=== PATIENT | male | born 1940 | race Caucasian/White ===

== ENCOUNTER → 2024-02-14 06:29 | Day surgery (SDC) | payer MEDICARE, SELFPAY ==
[2024-02-14 07:17] LABS: Glucose - Point of Care 140 mg/dl (70-99)
== END ==
LOC: GI 06:29
PROVIDERS: ATTENDING PHYSICIAN Internal Medicine Gastroenterology
DX: Z12.11 Encounter for screening for malignant neoplasm of colon (principal); D12.5 Benign neoplasm of sigmoid colon; K64.8 Other hemorrhoids
CPT/HCPCS: 45385; 88305; 82962

== ENCOUNTER → 2024-06-23 15:09 | Outpatient (REF) | payer MEDICARE, SELFPAY | LOC: HWRAD 15:09 | PROVIDERS: ATTENDING PHYSICIAN Internal Medicine Cardiovascular Disease; FAMILY PHYSICIAN Internal Medicine | DX: I10 Essential (primary) hypertension (principal); R06.02 Shortness of breath | CPT/HCPCS: 71046 ==

== ENCOUNTER → 2024-07-05 09:34 | Outpatient (REF) | payer MEDICARE, SELFPAY | LOC: RCS 09:34 | PROVIDERS: ATTENDING PHYSICIAN Internal Medicine Cardiovascular Disease; FAMILY PHYSICIAN Internal Medicine | DX: I10 Essential (primary) hypertension (principal); R06.02 Shortness of breath; R60.0 Localized edema | CPT/HCPCS: 93306; 93356 ==

== ENCOUNTER → 2025-02-17 15:57 | Outpatient (REF) | payer MEDICARE, SELFPAY | LOC: RAD 15:57 | PROVIDERS: ATTENDING PHYSICIAN Nurse Practitioner Family | DX: R10.31 Right lower quadrant pain (principal); M54.41 Lumbago with sciatica, right side | CPT/HCPCS: 72110; 73502 ==